=== PATIENT | female | born 2000 | race Caucasian/White ===

== ENCOUNTER 2019-10-11 16:50 | Emergency (ER) | payer BC, OTHER ==
--- OUTSIDE RECORDS SUMMARY | 2019-10-11 17:01 | XMS REPORT | Continuity of Care Document ---
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 Problems Provider Date Stress fracture of metatarsal bone Live Pérez MD Onset: 08/30/2019 Social History Type Date Description Comments Sex Unknown Tobacco Use Start: Unknown Patient has never smoked Smoking Status Reviewed: 09/19/19 Patient has never smoked Allergies, Adverse Reactions, Alerts Description No Known Drug Allergies Medications Active Medications SIG Qnty Indications Ordering Provider Date Knee Scooter use for M84.375A Live Pérez MD 08/30/2019 non-weightbearing ht: 67", wt: 148 lbs History Medications No Active Medications Unknown 08/30/2019 - 08/30/2019 Immunizations Description No Information Available Vital Signs Date Vital Result Comment 09/19/2019 9:51am Height 67 inches 5'7" Weight 150.00 lb Heart Rate 78 /min BP Systolic 120 mmHg BP Diastolic 66 mmHg Respiratory Rate 16 /min Body Temperature 99.3 F Pain Level 23 BMI (Body Mass Index) 23.5 kg/m2 08/30/2019 3:17pm Height 67 inches 5'7" Weight 148.00 lb Heart Rate 60 /min BP Systolic 140 mmHg BP Diastolic 84 mmHg Respiratory Rate 17 /min Body Temperature 97.9 F Pain Level 6 BMI (Body Mass Index) 23.2 kg/m2 Results Description No Information Available Procedures Description No Information Available Medical Devices Description No Information Available Encounters Type Date Location Provider Dx Diagnosis Office Visit 09/19/2019 [facility] Martha Paredes84.375A Stress fracture, 9:45a at [place] left foot, initial encounter for fracture Office Visit 08/30/2019 [facility] Live Pérez, M84.375A Stress fracture, 3:00p at [place] left foot, initial encounter for fracture Assessments Date Code Description Provider 09/19/2019 Martha84.375A Stress fracture, left foot, initial encounter Live Pérez MD for fracture 08/30/2019 M84.375A Stress fracture, left foot, initial encounter Live Pérez MD for fracture Plan of Treatment Future Appointment(s):10/17/2019 9:15 am - Live Pérez MD at [facility] at Zfdkyh0909/19/2019 - ALINA Paredes84.375A Stress fracture, left foot, initial encounter for fractureFollow up:Follow Up: 4-5 weeks Functional Status Description No Information Available Mental Status Description No Information Available Referrals Description No Information Available
--- OUTSIDE RECORDS SUMMARY | 2019-10-11 17:01 | XMS REPORT | Continuity of Care Document ---
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 Problems Provider Date Stress fracture of metatarsal bone Live Pérez MD Onset: 08/30/2019 Social History Type Date Description Comments Sex Unknown Tobacco Use Start: Unknown Patient has never smoked Smoking Status Reviewed: 08/30/19 Patient has never smoked Allergies, Adverse Reactions, Alerts Description No Known Drug Allergies Medications Active Medications SIG Qnty Indications Ordering Provider Date Knee Scooter use for M84.375A Live Pérez MD 08/30/2019 non-weightbearing ht: 67", wt: 148 lbs History Medications No Active Medications Unknown 08/30/2019 - 08/30/2019 Immunizations Description No Information Available Vital Signs Date Vital Result Comment 08/30/2019 3:17pm Height 67 inches 5'7" Weight 148.00 lb Heart Rate 60 /min BP Systolic 140 mmHg BP Diastolic 84 mmHg Respiratory Rate 17 /min Body Temperature 97.9 F Pain Level 6 BMI (Body Mass Index) 23.2 kg/m2 Results Description No Information Available Procedures Description No Information Available Medical Devices Description No Information Available Encounters Description No Information Available Assessments Date Code Description Provider 08/30/2019 M84.375A Stress fracture, left foot, initial encounter Live Pérez MD for fracture Plan of Treatment Future Appointment(s):10/10/2019 9:30 am - Live Pérez MD at [facility] at Uemlhc6908/30/2019 - ALINA Paredes84.375A Stress fracture, left foot, initial encounter for fractureNew Medication:Knee Scooter - use for non-weightbearing ht: 67", wt: 148 lbsNew Xrays:CT Extremity Lower Left Wo, Ordered: 08/30/19Follow up:Follow Up: 6 weeks Functional Status Description No Information Available Mental Status Description No Information Available Referrals Description No Information Available
--- OUTSIDE RECORDS SUMMARY | 2019-10-11 17:01 | XMS REPORT | Continuity of Care Document ---
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
[2019-10-11 18:37] LABS: ABS Lymphocytes 0.9 10^3/ul (1.0-4.8); ABS Monocytes 0.4 10^3/ul (0-0.8); ABS Neutrophils 4.1 10^3/ul (1.5-7.7); Eosinophil % 0.1 %; Hematocrit 42 % (35-47); Hemoglobin 14.8 g/dL (12.0-16.0); Lymphocyte % 15.8 %; Mean Corpuscular HGB Conc 35 g/dL (31-36); Mean Corpuscular Hemoglobin 31 pg (27-31); Mean Corpuscular Volume 87 fL (80-97); Mean Platelet Volume 7.7 fL (7.4-10.4); Nucleated Red Blood Cells % 0.1; Platelet Count 187 10^3/uL (150-450); Red Cell Distribution Width 13 % (10-15); White Blood Count 5.5 10^3/uL (3.5-10.8)
[2019-10-11 18:54] LABS: ALT 11 U/L (7-52); AST 15 U/L (13-39); Albumin 4.7 g/dL (3.2-5.2); Alkaline Phosphatase 87 U/L (34-104); Anion Gap 7 mmol/L (2-11); BUN/Creatinine Ratio 15.5 (8-20); Blood Urea Nitrogen 13 mg/dL (6-24); CO2 Carbon Dioxide 28 mmol/L (22-32); Calcium 9.6 mg/dL (8.6-10.3); Chloride 100 mmol/L (101-111); EGFR African American 104.6 (>60); EGFR Non-African American 86.4 (>60); Globulin 2.4 g/dL (2-4); Glucose 105 mg/dL (70-100); Potassium 3.6 mmol/L (3.5-5.0); Sodium 135 mmol/L (135-145); Total Protein 7.1 g/dL (6.4-8.9)
[2019-10-11 19:01] LABS: HCG Pregnancy < 0.60 mIU/mL
[2019-10-11 20:30] VITALS: BP 150/97
== END 2019-10-11 21:07 | disposition left against medical advice (07) ==
LOC: ED 16:50
DX: R19.7 Diarrhea, unspecified (principal); R11.0 Nausea; R10.9 Unspecified abdominal pain; Z53.21 Procedure and treatment not carried out due to patient leaving prior to being seen by health care provider
CPT/HCPCS: 36415; 80053; 84702; 85025; 99281